=== PATIENT | female | born 1940 | race Caucasian/White ===

== ENCOUNTER → 2019-10-11 | Outpatient (CLI) | payer MEDICARE ==
[2019-10-09 10:07] LABS: Basophils # (A) 0.1 k/uL (0-0.2); Basophils % (A) 1 %; Eosinophils # (A) 0.8 k/uL (0-0.7); Eosinophils % (A) 15 %; HCT 37.6 % (34.0-46.0); HGB 11.5 gm/dL (11.4-16.0); Lymphocytes # (A) 1.3 k/uL (1.0-4.8); Lymphocytes % (A) 24 %; MCH 29.4 pg (25.0-35.0); MCHC 30.6 g/dL (31.0-37.0); MCV 96.1 fL (80.0-100.0); Monocytes # (A) 0.3 k/uL (0-1.0); Monocytes % (A) 5 %; Neutrophils # (A) 2.9 k/uL (1.3-7.7); Neutrophils % (A) 52 %; Platelet Count 304 k/uL (150-450); RBC 3.91 m/uL (3.80-5.40); RDW 13.8 % (11.5-15.5); WBC 5.5 k/uL (3.8-10.6)
[2019-10-09 10:17] LABS: INR 0.9 (<1.2); Partial Thromboplastin Time 23.6 sec (22.0-30.0); Prothrombin Time 9.5 sec (9.0-12.0)
[2019-10-09 10:36] LABS: Appearance,Urine Cloudy (Clear); Bacteria,Urine Moderate /hpf; Bilirubin,Urine Negative (Negative); Blood,Urine Trace (Negative); Color,Urine Yellow; Glucose,Urine (UA) Negative (Negative); Ketones,Urine Negative (Negative); Leukocyte Esterase,Urine Large (Negative); Mucus,Urine Rare /hpf; Nitrite,Urine Positive (Negative); PH, Urine 5.5 (5.0-8.0); Protein,Urine Negative (Negative); RBC,Urine 7 /hpf (0-5); Specific Gravity,Urine 1.013 (1.001-1.035); Squamous Epithelial Cell,Urine 5 /hpf (0-4); Urobilinogen,Urine <2.0 mg/dL (<2.0); WBC,Urine 157 /hpf (0-5)
[2019-10-09 16:58] LABS: African American GFR (CKD) 71.5 (60.0-200.0); Albumin 4.4 g/dL (3.80-4.90); Albumin/Globulin Ratio 2.1 (1.60-3.17); BUN/Creat Ratio 24.44 Ratio (12.00-20.00); Calcium 9.5 mg/dL (8.7-10.3); Globulin 2.1 g/dL (1.6-3.3); Non-African American GFR(CKD) 61.7 (60.0-200.0); Total Bilirubin 0.4 mg/dL (0.2-1.2); Total Protein 6.5 g/dL (6.2-8.2)
== END | disposition home or self-care (01) ==
LOC: LABWHC1 10-09 08:13
PROVIDERS: ATTEND Orthopaedic Surgery Sports Medicine
DX: Z01.818 Encounter for other preprocedural examination (principal); Z01.812 Encounter for preprocedural laboratory examination
CPT/HCPCS: 36415; 80053; 81001; 85025; 85610; 85730; 87070; 93005

== ENCOUNTER 2019-10-13 13:14 | Observation (INO) | payer MEDICARE ==
[2019-10-11 11:49] VITALS: BMI 27.3
[~2019-10-13 13:14] MED LIST: ACETAMINOPHEN TAB 500 MG TAB PO ONE; DEXAMETHASONE SOD PHOSPHATE 10 MG/ML 1 ML VIAL IV ONE; GABAPENTIN 300 MG CAP PO ONE; LACTATED RINGERS 1,000 ML IV SCH; MELOXICAM 7.5 MG TAB PO ONE; ONDANSETRON 4 MG/2 ML VIAL IVP ONE; TRANEXAMIC ACID 1,000 MG in SODIUM CHLORIDE 0.9% 100 ML IVPB ONE; fentaNYL (PF) 50 MCG/ML 2 ML AMP IV PRN
[2019-10-13 14:03] LABS: Glucose,Whole Blood 97 mg/dL (75-99)
[2019-10-13] MEDS ORDERED: MIDAZOLAM 2 MG/2 ML VIAL IV ONE (14:13)
[2019-10-13] MEDS ORDERED: HYDROcodone/APAP 5-325MG 1 EACH TAB PO PRN (15:01)
[2019-10-13] MEDS ORDERED: NA PHOS,M-B/NA PHOS,DI-BA 133 ML ENEMA RECTAL PRN (15:01)
[2019-10-13] MEDS ORDERED: MAGNESIUM HYDROXIDE 2,400 MG/10 ML CUP PO PRN (15:01)
[2019-10-13] MEDS ORDERED: HYDROmorphone 0.5 MG/0.5 ML SYRINGE IVP PRN ×3 (15:01)
[2019-10-13] MEDS ORDERED: DIAZEPAM 5 MG TAB PO PRN (15:01)
[2019-10-13] MEDS ORDERED: ONDANSETRON 4 MG/2 ML VIAL IVP PRN (15:01)
[2019-10-13] MEDS ORDERED: TEMAZEPAM 15 MG CAP PO PRN (15:01)
[2019-10-13] MEDS ORDERED: HYDROcodone/APAP 10-325MG 1 EACH TAB PO PRN (15:01)
[2019-10-13] MEDS ORDERED: hydrOXYzine PAMOATE 25 MG CAP PO PRN (15:01)
[2019-10-13] MEDS ORDERED: NALOXONE 0.4 MG/ML 1 ML VIAL IV PRN (15:01)
[2019-10-13] MEDS ORDERED: traMADol 50 MG TAB PO PRN (15:01)
[2019-10-13] MEDS ORDERED: BISACODYL 10 MG SUPP RECTAL PRN (15:01)
[2019-10-13] MEDS ORDERED: PROPOFOL 10 MG/ML 20 ML VIAL IV ONE (15:17)
[2019-10-13] MEDS ORDERED: SODIUM CHLORIDE 0.9% 100 ML BAG ONE (15:17)
[2019-10-13] MEDS ORDERED: MIDAZOLAM 2 MG/2 ML VIAL ONE (15:17)
[2019-10-13] MEDS ORDERED: diphenhydrAMINE 50 MG/ML 1 ML VIAL ONE (15:17)
[2019-10-13] MEDS ORDERED: TRANEXAMIC ACID 1,000 MG/10 ML VIAL ONE (15:17)
[2019-10-13] MEDS: ROPIVACAINE 246.25 MG, EPINEPHrine 0.5 MG, KETOROLAC 30 MG, cloNIDine HCL/PF 80 MCG, WA... MISCELLANE ONE ×10 (15:44→16:20)
[2019-10-13] MEDS ORDERED: ROPIVACAINE 0.2%-NS ON-Q PUMP 1,090 MG, EMPTY PAIN BALL 1 EACH MISCELLANE PRN (17:00)
--- NOTE | 2019-10-13 17:00 | P.ANPRN ---
Procedure Note - Anesthesia - Nerve Block Performed Right Adductor Canal Date of Procedure: 10/13/19 Procedure Start Time: 14:13 Procedure Stop Time: 14:28 Location of Patient: PreOp Indication: Acute Post-Operative Pain, Requested by Surgeon (Dr Torres) Sedation Type: Sedate with meaningful contact maintained Preparation: Sterile Prep, Sterile Dressing Position: Supine Catheter: Indwelling Needle Types: Pajunk Needle Gauge: 21 Ultrasound used to visualize needle placement: Yes Ultrasound used to observe medication spread: Yes Injectate: 0.5% Ropivacaine (see comment for volume) (20cc) Blood Aspirated: No Pain Paresthesia on Injection Noted: No Resistance on Injection: Normal Image Stored and Saved: Yes Events: Uneventful and Well Tolerated
[2019-10-13] MEDS ORDERED: LACTATED RINGERS 1,000 ML IV ONE ×2 (17:35)
--- NOTE | 2019-10-13 17:54 | XR ---
EXAMINATION TYPE: XR knee limited RT DATE OF EXAM: 10/13/2019 COMPARISON: NONE HISTORY: Postop TECHNIQUE: 2 views FINDINGS: There is right knee prosthesis. Components are in anatomic position. There is minimal soft tissue air related to recent surgery. IMPRESSION: No complicating process seen.
[2019-10-13 17:55] LABS: Glucose,Whole Blood 155 mg/dL (75-99)
[2019-10-13 20:45] LABS: Glucose,Whole Blood 194 mg/dL (75-99)
[2019-10-13] MEDS ORDERED: SENNOSIDES-DOCUSATE SODIUM 1 EACH TAB PO SCH (21:00)
[2019-10-13] MEDS: ASPIRIN 325 MG TAB PO SCH (21:05)
[2019-10-13] MEDS: LACTATED RINGERS 1,000 ML IV SCH (22:15)
[2019-10-13 22:36] VITALS: RESP 17
--- NOTE | 2019-10-14 03:56 | OP ---
OPERATIVE REPORT DATE OF PROCEDURE: 10/13/2019. SURGEON: Mumtaz Torres MD. AERODYNAMICIST: VASILE Garza. PREOPERATIVE DIAGNOSIS: Right knee osteoarthrosis. POSTOPERATIVE DIAGNOSIS: Right knee osteoarthrosis. OPERATION: Right total knee arthroplasty. ANESTHESIA: Spinal sedation. ESTIMATED BLOOD LOSS: 100 mL. TOURNIQUET TIME: 41 minutes at 250 mmHg. COMPLICATIONS: None apparent. DRAINS: None. DISPOSITION: Postanesthesia care unit. INDICATIONS: Yamel is a very pleasant 79-year-old female with longstanding history of right knee pain. History and physical examination are consistent with advanced right knee osteoarthrosis. She has been through significant nonoperative management up to this point. Further treatment options were discussed and she has decided to go for the right total knee arthroplasty. The risks of the procedure were discussed with her in detail. These risks include, but are not limited to risk of infection, nerve damage, bleeding, pain, and a small risk of deep vein thrombosis which could lead to fatal pulmonary embolism. There is also risk of loosening of the implant which could require revision operation. Patient understands these risks. All of her questions were answered to her satisfaction. Appropriate informed consent was obtained. DESCRIPTION OF PROCEDURE: The patient identified in the preoperative holding area. Surgical sites marked by both the patient and myself. She was given 2 grams of Ancef IV for prophylactic purposes. She was then transferred to the operative suite. She was placed supine on the operative table. Spinal anesthetic was then administered and dosed per the anesthesia department without apparent complication. Examination under anesthesia was then performed. The patient was 2-3 degrees shy of full extension. She had 100 degrees of flexion. Medial collateral ligament, lateral collateral ligament and posterior cruciate ligaments were stable. Tourniquet was then placed high on the right upper thigh well-padded in preparation for surgery. The patient's right lower extremity was then prepped and draped in usual sterile fashion. Standard surgical pause undertaken to ensure that we were operating on the correct site and that appropriate preoperative antibiotics had been given. All staff in the room were in agreement and we proceeded. The outlines of the patella marked with surgical pen. A planned 12 cm vertical incision centered over the patella was marked with surgical pen. The leg was exsanguinated with an Esmarch dressing. The knee was flexed and tourniquet was inflated to 250 mmHg. The total tourniquet time for the procedure was 41 minutes. Incision was then made with a 10 blade scalpel. Dissection was carried down sharply overlying fascia. Great care was taken to minimize the skin flaps. The knee was then exposed using a standard medial parapatellar approach. A small cuff of quadriceps tendon was then left for suturing. She was in a bit of varus preoperatively. A standard medial release was then made. Superficial medial collateral ligament dissected off the bone around to the posterior aspect of the proximal tibia. The medial meniscus was then excised as well. The lateral meniscus was also released anteriorly. The leg was then externally rotated. The patella was everted. The knee was flexed. Retractors were then placed to protect the collateral ligaments. I then proceeded to remove the infrapatellar fat pad. This was excised sharply tangentially with fibers of the patellar tendon. I then proceeded to remove the peripheral osteophytes. This was done with a rongeur. I then proceeded with the distal femoral resection. She did have near full extension. A planned 9 mm resection was then done. The femoral canal was then entered at the midline of the femur approximately 10 mm anterior to the origin of the posterior cruciate ligament. The bran was then advanced down the center of the femur and placed intramedullary. Based on the preoperative radiographs, the angle between the anatomic and mechanical axis of the femur was approximately 4 to 5 degrees. The valgus angle distal femoral cutting guide was then set at 4 degrees for the right knee. The distal femoral cutting guide was then advanced over the intramedullary bran. This was seated firmly against the femur. Then as mentioned planned to take 9 mm off the distal femur. The cutting block was then secured onto the femur with pins. The jig was removed. The distal femoral cut was made through the slot of the block. The pin was then removed. The distal femoral cutting block was removed. The accuracy of the distal femoral cuts was checked with 2 flat bars. I then proceed to femoral sizing. Posterior referencing sizing guide was held firmly against the resected distal surface of the femur. The posterior condyles were resting on the posterior plane of the guide. The sizing stylus was then placed onto the anterior femur. The size was measured as a size 8. I then assessed for femoral rotation. Plan for 3 degrees external rotation. Three degrees of external rotation was placed onto the jig. These holes were then marked. I then confirmed the rotation by 3 separate methods. This was done using epicondylar axis as well as Whitesides line and posterior referencing. It was deemed that the external rotation was proper. I then went forward with placing the femoral cutting block. This was placed over the previously placed pin holes. The Shivam wing was then placed on the anterior slots to ensure that we would not notch the anterior femur with the anterior femoral cut. I then proceeded with the anterior femoral cut. This was flushed with the anterior cortex of the femur. Posterior cuts were then made followed by the anterior chamfer cut, then the posterior chamfer cut. The cutting block was then removed. Throughout the resection, the collateral ligaments were protected with retractors. I then placed a trial size 8 femur. It fit very nice medial-lateral and fit flush with the distal end of the femur. The drill holes were then made. I then proceeded with the tibial cut. I planned for cruciate retaining knee. The guide was placed and set for varus, valgus and for slope. The height was set for approximate 2 mm resection from the medial tibial plateau which was the lower side. I was happy with the alignment and amount of resection. The cutting block was then pinned to the proximal tibia. The alignment bran was removed. The proximal tibia was resected with a reciprocating saw. Again this was done with retractors protecting the collateral ligaments as well as the posterior cruciate ligament. I then proceeded to evaluate the flexion and extension gaps. A 10 mm block was then placed. The flexion and extension gaps were equal. I then proceeded with resection of posterior osteophytes. She had very minimal posterior osteophytes. This was done using a curved osteotome. This resected the posterior osteophytes and posterior capsule stripping was done off the posterior aspect of the femur at this time. The osteophytes were then removed. I then proceeded with resection of patella. The thickness of the patella was measured using the caliper. The thickness was 22 mm. The thickness of the anticipated patellar dome was taken into account. Resection was then performed and confirmed to be equal in 4 quadrants using a caliper. Approximately 14 mm of bone remained after resection. A 29 x 8 standard patellar trial was then placed. The holes were drilled. The trial was then placed. I then proceeded with sizing the tibial plate. A size F tibial plate fit very nicely. I then placed the trial femur, the tibial tray and the patellar button. A 10 mm trial tibial insert was also placed. The components fit very nicely. She had full extension and flexion. The extension and flexion gaps were equal and stable to varus and valgus stress. The patella tracked appropriately. The tibial tray rotation was then marked with a Bovie. This was externally rotated properly. I then proceeded with tibial preparation. I first drilled the femoral holes, removed femoral component. The tibial tray was then set for proper external rotation as well as mediolateral placement onto the tibia. It was then pinned into place. I then proceeded with punching the keel. I then decided to proceed with cementing of all of our components. The knee was thoroughly irrigated with sterile saline solution via pulse lavage. The lateral geniculate artery was identified and cauterized. All blood was removed from the bone of the tibia femur and patella with pulse lavage. I then proceeded with cementing. Two packs of antibiotic bone cement prepared on the back table by the surgical corsetier. I then proceeded with cementing the tibia first. The cement was impacted in the keel as well as deeply seated to the bone. A second coat of cement was then placed. The tibia was then impacted into place. Excess cement was removed with Jess's and jokers. I then proceeded with cementing of the femoral component. The femoral component was also cemented using standard technique. Excess cement was removed. A 10 mm trial insert was then placed into the knee. It was brought into full extension with a constant axial load placed until the cement had hardened. The patellar component was then cemented. This was held firmly with a compressive device until the cement had dried. When the cement had dried, the knee was taken out of extension. All excess cement was removed from around the prosthesis. I then trialed the knee with a 10 mm insert. The flexion and extension gaps were appropriate. I then trialed an 11 mm insert. Flexion and extension gaps felt better. The knee was stable with an 11 mm insert. It came into full extension. I decided to go forward with an 11 mm cross-linked cruciate- retaining tibial insert. Polyethylene was then placed on the tibial tray and locked into place. The knee was then reduced. The knee was again further irrigated with sterile saline solution with antibiotic added. The tourniquet was then deflated. Total tourniquet time for the procedure was 41 minutes at 250 mmHg. Final components were Fede Persona size 8 cruciate-retaining femoral component, size F tibial tray, an 11 mm cruciate retaining polyethylene insert and a 29 x 8 mm patella. I then proceeded with closure. Again, the knee was thoroughly irrigated. The quadriceps tendon and the medial retinaculum were reapproximated with #2 Ethibond suture. The extensor mechanism was then closed with a running #2 Quill suture. Subcutaneous tissues were closed with 2-0 Vicryl interrupted suture. The skin was closed with a running 3-0 Quill suture. Dermabond was applied to the incision. Sterile compressive dressings were applied. All sponge and needle counts were deemed correct prior to closure. The patient tolerated procedure without apparent complication. She was transferred recovery room in stable condition. MMODL / IJN: [id number] /
[2019-10-14] MEDS: LACTATED RINGERS 1,000 ML IV SCH (04:52)
--- NOTE | 2019-10-14 06:47 | P.CONS ---
History of Present Illness - Reason for Consult Consult date: 10/14/19 - History of Present Illness The patient is 79-year-old female with a a PMH of HTN, hypothyroidism, type 2 DM, and bilateral knee osteoarthritis status post left knee arthroplasty who was admitted to the hospital for an elective right knee total arthroplasty. The patient was seen as a medical consult postoperatively on the surgical unit. The patient reported excellent control of her pain, rated at a 1 out of 10 of the right knee at time of interview. She denied any additional complaints. She denied chest pain, shortness of fever, chills, cough, nausea, vomiting, abdominal pain, diarrhea, or dizziness. The patient endorsed that she was diagnosed with a UTI 3 days ago, and was prescribed Bactrim, which she is currently taking. Review of Systems Pertinent positives and negatives as discussed in HPI, a complete review of systems was performed and all other systems are negative. Past Medical History Past Medical History: Diabetes Mellitus, Hypertension, Thyroid Disorder Additional Past Medical History / Comment(s): occ leakage of stool, arthritis in knee, skin cancer, on Rx for UTI currently History of Any Multi-Drug Resistant Organisms: None Reported Past Surgical History: Adenoidectomy, Bladder Surgery, Hysterectomy, Joint Replacement, Tonsillectomy Additional Past Surgical History / Comment(s): bladder suspension, skin cancer removed from nose, left knee replacement, Past Anesthesia/Blood Transfusion Reactions: Motion Sickness Additional Past Anesthesia/Blood Transfusion Reaction / Comm: "sudden shock syndrome"-can not take medications rapidly(felt like she was going to pass out), needs IV mediations given slowly. woke up in ICU after last knee surgery and received 4 units of blood Past Psychological History: No Psychological Hx Reported Smoking Status: Former smoker Past Alcohol Use History: None Reported Additional Past Alcohol Use History / Comment(s): quit smoking around age 32, started smoking since age 15 Past Drug Use History: None Reported - Past Family History Mother Family Medical History: Cancer Additional Family Medical History / Comment(s): uterine Medications and Allergies Home Medications Medication Instructions Recorded Confirmed Type Bactrim(Dose Unknown) 1 tab PO DIRECTED 10/11/19 10/13/19 History Calcium + D3 1 tab PO DAILY 10/11/19 10/13/19 History Iron Tab 27 ng PO DAILY 10/11/19 10/13/19 History Levothyroxine Sodium 100 mcg PO 2100 10/11/1920 History Lisinopril [Zestril] 10 mg PO DAILY 10/11/19 10/13/19 History amLODIPine BESYLATE [Norvasc] 2.5 mg PO 209910/11/19 10/13/19 History metFORMIN HCL 500 mg PO BID 10/11/19 10/13/19 History Allergies Allergy/AdvReac Type Severity Reaction Status Date / Time acetaminophen [From Lortab] Allergy Nausea & Verified 10/13/19 13:57 Vomiting hydrocodone [From Lortab] Allergy Nausea & Verified 10/13/19 13:57 Vomiting Physical Exam Vitals: Vital Signs Temp Pulse Resp BP Pulse Ox 10/14/19 04:11 17 10/14/19 01:38 97.5 F L 64 18 119/67 98 10/13/19 22:34 17 10/13/19 20:07 74 18 160/67 97 10/13/19 19:52 70 18 164/73 99 10/13/19 19:38 75 18 152/70 96 10/13/19 19:25 18 10/13/19 19:22 68 18 165/64 100 10/13/19 19:07 90 138/65 10/13/19 18:53 88 18 136/65 95 10/13/19 18:37 82 18 127/66 89 L 10/13/19 18:29 97.5 F L 81 19 162/61 94 L 10/13/19 17:50 79 16 132/60 91 L 10/13/19 17:35 81 16 133/64 92 L 10/13/19 17:20 80 16 143/66 95 10/13/19 17:04 97 F L 83 16 153/70 98 10/13/19 14:39 69 14 151/74 97 10/13/19 13:54 97.3 F L 70 16 196/91 97 Intake and Output 10/13/19 10/13/19 10/14/19 14:59 22:59 06:59 Intake Total 200 950 Output Total 200 500 Balance 200 750 -500 Intake: IV 200 950 Output: Urine 100 500 Estimated Blood Loss 100 Other: Voiding Method Toilet Weight 74.5 kg 74.5 kg General: non toxic, no distress, appears at stated age, normal weight Derm: no unusual rashes/lesions no unusual ecchymoses, warm, dry Head: atraumatic, normocephalic, symmetric Eyes: EOMI, no lid lag, anicteric sclera, pupils equal round reactive to light ENT: Nose and ears atraumatic, no thrush, no pharyngeal erythema Neck: No thyromegaly, no cervical lymphadenopathy, trachea midline, supple Mouth: no lip lesion, mucus membranes moist Cardiovascular: S1S2 reg, no murmur, positive posterior tibial pulse bilateral, no edema, capillary refill less than 2 seconds Lungs: CTA bilateral, no rhonchi, no rales , no accessory muscle use Abdominal: soft, nontender to palpation, no guarding, no appreciable organomegaly, normal bowel sounds Ext: right knee Manny bandage in place,no gross muscle atrophy, muscle strength 5 out of 5 in all 4 extremities grossly except for right lower extremity due to pain, no contractures, Neuro: CN II-XI grossly intact, light touch intact all 4 extremities, finger to nose within normal limits, Psych: Alert, oriented, appropriate affect Results Labs: Abnormal Lab Results - Last 24 Hours (Table) 10/13/19 10/13/19 Range/Units 17:53 20:45 POC Glucose (mg/dL) 155 H 194 H (75-99) mg/dL Assessment and Plan Plan: Status post right total knee arthroplasty -Management including pain control as per the orthopedic surgery service Hypertension -Continue with home meds Type II DM -Lispro sliding scale with blood glucose monitoring -Check A1c Hypothymism -Continue with home med levothyroxine
[2019-10-14] MEDS ORDERED: INSULIN ASPART (NovoLOG) 100 UNIT/ML VIAL SQ SCH (07:30)
[2019-10-14 07:32] LABS: Glucose,Whole Blood 92 mg/dL (75-99)
[2019-10-14 07:50] LABS: Basophils % (A) 0 %; Eosinophils # (A) 0.2 k/uL (0-0.7); Eosinophils % (A) 1 %; HCT 32.4 % (34.0-46.0); Hypochromasia Slight; Lymphocytes # (A) 1.5 k/uL (1.0-4.8); Lymphocytes % (A) 13 %; MCH 29.5 pg (25.0-35.0); MCHC 30.2 g/dL (31.0-37.0); MCV 97.8 fL (80.0-100.0); Mean Platelet Volume 7.2; Monocytes # (A) 0.6 k/uL (0-1.0); Monocytes % (A) 5 %; Neutrophils # (A) 8.8 k/uL (1.3-7.7); Neutrophils % (A) 79 %; Platelet Count 303 k/uL (150-450); RBC 3.32 m/uL (3.80-5.40); RDW 13.9 % (11.5-15.5); WBC 11.1 k/uL (3.8-10.6)
[2019-10-14 08:08] LABS: HGB 9.8 gm/dL (11.4-16.0)
[2019-10-14] MEDS: ASPIRIN 325 MG TAB PO SCH (08:38)
[2019-10-14 08:49] VITALS: BP 134/63; PULSE 61; TEMP 97.4
[2019-10-14] MEDS ORDERED: LISINOPRIL 10 MG TAB PO SCH (09:00)
--- NOTE | 2019-10-14 09:37 | P.PN ---
Progress Note - Text Progress Note Date: 10/14/19 Patient was seen at bedside at 645 AM. Patient is postop day 1 from right total knee replacement with adductor canal catheter placed for pain . Ropivacaine 0.2% infusion running at 8 ml per hour. VAS score is 1-5/10. Patient denies side effects. Lower extremity sensation and motor function is intact. Patient has ambulated. Dressing clean dry and intact over catheter site
--- NOTE | 2019-10-14 11:18 | P.DS ---
Providers Expected date of discharge: 10/14/19 Attending physician: Mumtaz Torres Consults: 10/13/19 15:01 Consult Physician Routine Consulting Provider: Cally Kelsey Consult Reason/Comments: post op medical management Do you want consulting provider notified?: Yes Primary care physician: Christopher Roach - Discharge Diagnosis(es) (1) Osteoarthritis of right knee Patient was admitted to the OR on 10/13/2019 to undergo a right total knee arthroplasty. She had failed conservative measures as an outpatient and desired to proceed with elective surgery after given informed consent. She underwent the above procedure which she tolerated well without complication. Postoperative hospital course has remained without complication. On day of discharge she is afebrile, vital signs stable, labs within acceptable ranges, tolerating by mouth meds and diet, voiding without difficulty, positive flatus, denies abdominal pain or calf pain, pain is controlled on oral pain medication and has no new complaints. Wound is benign, neurovascular status is intact, calf is soft and nontender, abdomen soft and nontender. Review of systems is negative for numbness, tingling, fever, chills, chest pain, shortness of breath, nausea, vomiting, dizziness, headaches, slurred speech or other Current Visit: No Status: Acute Priority: Medium (2) Status post total right knee replacement Current Visit: No Status: Acute Priority: Medium Procedures: RTKA Patient Condition at Discharge: Good Plan - Discharge Summary Discharge Rx Participant: Yes New Discharge Prescriptions: New Aspirin [Adult Low Dose Aspirin EC] 81 mg PO BID #60 tablet. traMADol HCL 50 mg PO Q4HR PRN #42 tablet PRN Reason: Pain Continue Iron Tab 27 ng PO DAILY Calcium + D3 1 tab PO DAILY Levothyroxine Sodium 100 mcg PO 2100 #30 metFORMIN HCL 500 mg PO BID #60 amLODIPine BESYLATE [Norvasc] 2.5 mg PO 2100 #30 Sulfamethoxazole/Trimethoprim [Sulfamethoxazole-Tmp Ds Tablet] 1 tab PO BID #6 Lisinopril [Zestril] 10 mg PO DAILY #30 Discharge Medication List Calcium + D3 1 tab PO DAILY 10/11/19 [History] Iron Tab 27 ng PO DAILY 10/11/19 [History] Aspirin [Adult Low Dose Aspirin EC] 81 mg PO BID #60 tablet. 10/14/19 [Rx] Levothyroxine Sodium 100 mcg PO 2100 #30 10/14/19 [Rx] Lisinopril [Zestril] 10 mg PO DAILY #30 10/14/19 [Rx] Sulfamethoxazole/Trimethoprim [Sulfamethoxazole-Tmp Ds Tablet] 1 tab PO BID #6 10/14/19 [Rx] amLODIPine BESYLATE [Norvasc] 2.5 mg PO 2100 #30 10/14/19 [Rx] metFORMIN HCL 500 mg PO BID #60 10/14/19 [Rx] traMADol HCL 50 mg PO Q4HR PRN #42 tablet 10/14/19 [Rx] Follow up Appointment(s)/Referral(s): [facility], [NON-STAFF] - Christopher Roach MD [Primary Care Provider] - 10/21/19 9:20 am Mumtaz Torres MD [STAFF PHYSICIAN] - 10/25/19 10:00 am Patient Instructions/Handouts: Knee Replacement (DC) Activity/Diet/Wound Care/Special Instructions: Complete Bactrim for UTI as prescribed to you in the outpatient setting. Keep wound clean and dry Take meds as directed Follow-up with Dr. Torres in office Weight bear as tolerated May shower in 3 days if no bleeding Discharge Disposition: HOME WITH HOME HEALTH SERVICES
[2019-10-14 11:35] LABS: Glucose,Whole Blood 106 mg/dL (75-99)
[2019-10-14] MEDS ORDERED: MULTIVITAMINS, THERA 1 EACH TAB PO SCH (12:00)
[2019-10-14] MEDS ORDERED: amLODIPine 2.5 MG TAB PO SCH (21:00)
[2019-10-14] MEDS ORDERED: SULFAMETHOX-TMP 800-160MG 1 EACH TAB PO SCH (21:00)
[2019-10-14] MEDS ORDERED: LEVOTHYROXINE 100 MCG TAB PO SCH (21:00)
== END 2019-10-14 13:28 | disposition home or self-care (01) ==
LOC: OR 13:14 → 4SSUR 17:36 → OR 10-14 11:05 → 4SSUR 10-14 11:05
PROVIDERS: ADMIT Orthopaedic Surgery Sports Medicine; ATTEND Orthopaedic Surgery Sports Medicine
DX: M17.11 Unilateral primary osteoarthritis, right knee (principal); I10 Essential (primary) hypertension; E03.9 Hypothyroidism, unspecified; E11.9 Type 2 diabetes mellitus without complications; N39.0 Urinary tract infection, site not specified; D50.9 Iron deficiency anemia, unspecified; E78.5 Hyperlipidemia, unspecified; Z96.652 Presence of left artificial knee joint; Z85.828 Personal history of other malignant neoplasm of skin; Z87.891 Personal history of nicotine dependence; Z79.899 Other long term (current) drug therapy; Z79.84 Long term (current) use of oral hypoglycemic drugs; Z79.890 Hormone replacement therapy; Z88.5 Allergy status to narcotic agent; Z80.9 Family history of malignant neoplasm, unspecified
CPT/HCPCS: 27447; 97110; 97161; 64448; 76942; 85025; 88300; 83036; 73560; G0378; C1776; C1713; J2250; J0171; J1200; J1100; J0690 ×2; J2405; J1885; J2795 ×2; J2704; J0735; J1170

== ENCOUNTER → 2021-04-11 | Outpatient (CLI) | payer MEDICARE ==
--- NOTE | 2021-04-23 09:40 | MM ---
Reason for exam: screening (asymptomatic). Last mammogram was performed 1 year and 1 month ago. History: Patient is postmenopausal and has history of other cancer at age 78. Family history of breast cancer in paternal grandmother. Benign excisional biopsy of the left breast, 2002. Benign excisional biopsy of the right breast, 1960. Took hormonal contraceptives for 5 years. Physical Findings: A clinical breast exam by your physician is recommended on an annual basis and results should be correlated with mammographic findings. MG Screening Mammo w CAD Bilateral CC and MLO view(s) were taken. Prior study comparison: March 16, 2020, mammogram, performed at [facility]. October 12, 2018, mammogram, performed at [facility]. October 01, 2017, mammogram, performed at [facility]. The breast tissue is heterogeneously dense. This may lower the sensitivity of mammography. There are benign appearing vascular calcifications bilaterally. There is no discrete abnormality. ASSESSMENT: Benign, BI-RAD 2 RECOMMENDATION: Routine screening mammogram of both breasts in 1 year.
== END | disposition home or self-care (01) ==
LOC: RADMAMWWP 06:57
PROVIDERS: ATTEND Family Medicine
DX: Z12.31 Encounter for screening mammogram for malignant neoplasm of breast (principal); Z78.0 Asymptomatic menopausal state; Z80.3 Family history of malignant neoplasm of breast
CPT/HCPCS: 77067

== ENCOUNTER 2021-11-28 09:23 | Emergency (ER) | payer MEDICARE ==
[2021-11-28 09:43] VITALS: TEMP 97.9
[2021-11-28] MEDS ORDERED: SODIUM CHLORIDE 0.9% 500 ML 500 ML IV STA (10:05)
[2021-11-28 10:35] LABS: Basophils # (A) 0.1 k/uL (0-0.2); Basophils % (A) 1 %; Eosinophils # (A) 0.3 k/uL (0-0.7); Eosinophils % (A) 6 %; HCT 33.2 % (34.0-46.0); HGB 10.6 gm/dL (11.4-16.0); Lymphocytes # (A) 1.5 k/uL (1.0-4.8); Lymphocytes % (A) 24 %; MCHC 31.8 g/dL (31.0-37.0); MCV 94.4 fL (80.0-100.0); Monocytes # (A) 0.3 k/uL (0-1.0); Monocytes % (A) 5 %; Neutrophils # (A) 3.8 k/uL (1.3-7.7); Neutrophils % (A) 62 %; Platelet Count 298 k/uL (150-450); RBC 3.52 m/uL (3.80-5.40); RDW 12.6 % (11.5-15.5); WBC 6.2 k/uL (3.8-10.6)
[2021-11-28 10:58] LABS: Albumin 4.2 g/dL (3.5-5.0); Calcium 9.1 mg/dL (8.4-10.2); Potassium 4.4 mmol/L (3.5-5.1); Total Bilirubin 0.2 mg/dL (0.2-1.3); Total Protein 6.8 g/dL (6.3-8.2)
--- NOTE | 2021-11-28 11:03 | ED ---
Abdominal Pain HPI - General Chief Complaint: Abdominal Pain Stated Complaint: Abdominal Pain Time Seen by Provider: 11/28/21 09:45 Source: patient, RN notes reviewed Mode of arrival: ambulatory Limitations: no limitations - History of Present Illness Initial Comments: 72-year-old female presents emergency Department chief complaint of right lower quadrant abdominal pain. Patient states she's been having progressive pain over the last 1 week. Patient states the pain somewhat unbearable. Patient said no nausea no vomiting no diarrhea no constipation. Patient did prior hysterectomy. She denies any bleeding no hematuria. Patient states certain positions do improve the pain. No history kidney stones. - Related Data Home Medications Medication Instructions Recorded Confirmed Calcium + D3 1 tab PO DAILY 10/11/19 10/13/19 Iron Tab 27 ng PO DAILY 10/11/19 10/13/19 Previous Rx's Medication Instructions Recorded Aspirin [Adult Low Dose Aspirin EC] 81 mg PO BID #60 tablet. 10/14/19 Levothyroxine Sodium 100 mcg PO 2100 #30 10/14/19 Sulfamethoxazole/Trimethoprim 1 tab PO BID #6 10/14/19 [Sulfamethoxazole-Tmp Ds Tablet] amLODIPine BESYLATE [Norvasc] 2.5 mg PO 2100 #30 10/14/19 lisinopriL [Zestril] 10 mg PO DAILY #30 10/14/19 metFORMIN HCL 500 mg PO BID #60 10/14/19 traMADol HCL 50 mg PO Q4HR PRN #42 tablet 10/14/19 Amoxic-Pot Clav 875-125Mg 1 tab PO Q12HR #14 tab 11/28/21 [Augmentin 875-125] Allergies Allergy/AdvReac Type Severity Reaction Status Date / Time acetaminophen [From Lortab] Allergy Nausea & Verified 11/28/21 09:40 Vomiting hydrocodone [From Lortab] Allergy Nausea & Verified 11/28/21 09:40 Vomiting Review of Systems ROS Statement: Those systems with pertinent positive or pertinent negative responses have been documented in the HPI. ROS Other: All systems not noted in ROS Statement are negative. Past Medical History Past Medical History: Diabetes Mellitus, Hypertension, Thyroid Disorder Additional Past Medical History / Comment(s): occ leakage of stool, arthritis in knee, skin cancer, History of Any Multi-Drug Resistant Organisms: None Reported Past Surgical History: Adenoidectomy, Bladder Surgery, Hysterectomy, Joint Replacement, Tonsillectomy Additional Past Surgical History / Comment(s): bladder suspension, skin cancer removed from nose, left knee replacement, Past Anesthesia/Blood Transfusion Reactions: Motion Sickness Additional Past Anesthesia/Blood Transfusion Reaction / Comment(s): "sudden shoc k syndrome"-can not take medications rapidly(felt like she was going to pass out), needs IV mediations given slowly. woke up in ICU after last knee surgery and received 4 units of blood Past Psychological History: No Psychological Hx Reported Smoking Status: Former smoker Past Alcohol Use History: None Reported Past Drug Use History: None Reported - Past Family History Mother Family Medical History: Cancer Additional Family Medical History / Comment(s): uterine General Exam Limitations: no limitations General appearance: alert, in no apparent distress Head exam: Present: atraumatic, normocephalic, normal inspection Neck exam: Present: normal inspection. Absent: tenderness, meningismus, lymphadenopathy Respiratory exam: Present: normal lung sounds bilaterally. Absent: respiratory distress, wheezes, rales, rhonchi, stridor Cardiovascular Exam: Present: regular rate, normal rhythm, normal heart sounds. Absent: systolic murmur, diastolic murmur, rubs, gallop, clicks GI/Abdominal exam: Present: soft, tenderness (Right lower quadrant), normal bowel sounds. Absent: distended, guarding, rebound, rigid Back exam: Absent: CVA tenderness (R), CVA tenderness (L) Neurological exam: Present: alert Skin exam: Present: warm, dry, intact, normal color. Absent: rash Course Vital Signs 11/28/21 11/28/21 09:40 11:32 Temperature 97.9 F Pulse Rate 88 75 Respiratory 18 16 Rate Blood Pressure 133/91 150/83 O2 Sat by Pulse 95 100 Oximetry Medical Decision Making - Medical Decision Making Labs unremarkable, CT shows fecal loasding there is diverticulosis type changes though CT is limited for mucosal infection from constipation. Patient will be discharged with magnesium citrate, Augmentin for concerns of possible colitis ty pe changes. Patiently follow-up with PCP return for any worsening changes symptoms. - Lab Data Result diagrams: 11/28/21 10:23 11/28/21 10:23 Lab Results 11/28/21 11/28/21 11/28/21 Range/Units 10:23 10:23 10:23 WBC 6.2 (3.8-10.6) k/uL RBC 3.52 L (3.80-5.40) m/uL Hgb 10.6 L (11.4-16.0) gm/dL Hct 33.2 L (34.0-46.0) % MCV 94.4 (80.0-100.0) fL MCH 30.0 (25.0-35.0) pg MCHC 31.8 (31.0-37.0) g/dL RDW 12.6 (11.5-15.5) % Plt Count 298 (150-450) k/uL MPV 7.0 Neutrophils % 62 % Lymphocytes % 24 % Monocytes % 5 % Eosinophils % 6 % Basophils % 1 % Neutrophils # 3.8 (1.3-7.7) k/uL Lymphocytes # 1.5 (1.0-4.8) k/uL Monocytes # 0.3 (0-1.0) k/uL Eosinophils # 0.3 (0-0.7) k/uL Basophils # 0.1 (0-0.2) k/uL Sodium 140 (137-145) mmol/L Potassium 4.4 (3.5-5.1) mmol/L Chloride 109 H (98-107) mmol/L Carbon Dioxide 23 (22-30) mmol/L Anion Gap 8 mmol/L BUN 27 H (7-17) mg/dL Creatinine 0.82 (0.52-1.04) mg/dL Est GFR (CKD-EPI)AfAm 79 (>60 ml/min/1.73 sqM) Est GFR (CKD-EPI)NonAf 68 (>60 ml/min/1.73 sqM) Glucose 89 (74-99) mg/dL Plasma Lactic Acid Hero 1.3 (0.7-2.0) mmol/L Calcium 9.1 (8.4-10.2) mg/dL Total Bilirubin 0.2 (0.2-1.3) mg/dL AST 20 (14-36) U/L ALT 12 (4-34) U/L Alkaline Phosphatase 67 (38-126) U/L Total Protein 6.8 (6.3-8.2) g/dL Albumin 4.2 (3.5-5.0) g/dL Amylase 50 (30-110) U/L Lipase 67 (23-300) U/L Disposition Clinical Impression: Abdominal pain, Constipation, Diverticulosis Disposition: HOME SELF-CARE Condition: Stable Additional Instructions: Please return to the Emergency Department if symptoms worsen or any other concerns. Prescriptions: Amoxic-Pot Clav 875-125Mg [Augmentin 875-125] 1 tab PO Q12HR #14 tab Is patient prescribed a controlled substance at d/c from ED?: No Referrals: Santos Cook MD [Primary Care Provider] - 1-2 days Time of Disposition: 12:35
[2021-11-28 11:33] VITALS: BP 150/83; PULSE 75; RESP 16
--- NOTE | 2021-11-28 12:19 | CT ---
EXAMINATION TYPE: CT abdomen pelvis w con DATE OF EXAM: 11/28/2021 COMPARISON: None HISTORY: RLQ pain CT DLP: 1013.7 mGycm Automated exposure control for dose reduction was used. CONTRAST: CT scan of the abdomen pelvis is performed with IV Contrast, patient injected with 100 mL of Isovue 3 00. FINDINGS- LUNG BASES-basilar subsegmental changes most typical of atelectasis. 2 mm nodule anterior portion of the inferior right upper lobe axial image 2. Suspect a degree of chronic interstitial lung disease.. LIVER/GB- No gross abnormality is appreciated. PANCREAS- No gross abnormality is seen. SPLEEN-splenic granuloma noted.. ADRENALS- No gross abnormality is seen. KIDNEYS/BLADDER- no hydronephrosis or nephrolithiasis. Simple appearing left renal cyst.. BOWEL-bowel gas pattern nonspecific with no obstruction. Changes of diverticulosis noted with no CT e vidence of diverticulitis. Appendix is not seen with certainty. Retained fecal debris throughout the colon noted. Limits assessment for mucosal lesions particular regard to the right colon. There is a h iatal hernia. LYMPH NODES- No greater than 1cm abdominal or pelvic lymph nodes areappreciated. OSSEOUS STRUCTURES-hypertrophic and degenerative changes of the spine. Grade 1 anterolisthesis of L5 on S1. Suspect central disc herniation L5-S1 and L4-5. OTHER- Atherosclerotic change aorta. No evidence of aneurysm.. IMPRESSION- 1. Appendix not visualized. Bowel gas pattern nonspecific with no obstruction and changes of divertic ulosis. 2. Subsegmental changes involving the lung bases most likely in the basis of atelectasis correlate cl inically. Incidental note made of a 2 mm right upper lobe pulmonary nodule too small to characterize. Could be followed in 12 months basis. Also suspect chronic interstitial lung disease. 3. Hiatal hernia. 4. Retained debris throughout the right colon limits assessment for mucosal lesion. Correlate for con stipation.
[2021-11-28] MEDS ORDERED: MAGNESIUM CITRATE 296 ML BOTTLE PO ONE (12:36)
== END 2021-11-28 13:05 | disposition home or self-care (01) ==
LOC: EC 09:23
DX: K57.30 Diverticulosis of large intestine without perforation or abscess without bleeding (principal); K59.00 Constipation, unspecified; E11.9 Type 2 diabetes mellitus without complications; I10 Essential (primary) hypertension; Z88.6 Allergy status to analgesic agent; Z88.5 Allergy status to narcotic agent
CPT/HCPCS: 36415; 80053; 82150; 83605; 83690; 85025; 74177; 99285; 96360; Q9967; 99284

== ENCOUNTER 2022-02-23 10:43 | Emergency (ER) | payer MEDICARE ==
[2022-02-23 10:48] VITALS: TEMP 97.5
[2022-02-23 12:03] LABS: Albumin 4.3 g/dL (3.5-5.0); Basophils % (A) 0 %; Calcium 9.3 mg/dL (8.4-10.2); Eosinophils # (A) 0.1 k/uL (0-0.7); Eosinophils % (A) 2 %; HCT 32.1 % (34.0-46.0); HGB 10.6 gm/dL (11.4-16.0); Lymphocytes # (A) 1.3 k/uL (1.0-4.8); Lymphocytes % (A) 23 %; MCH 31.1 pg (25.0-35.0); MCV 94.2 fL (80.0-100.0); Mean Platelet Volume 7.7; Monocytes # (A) 0.2 k/uL (0-1.0); Monocytes % (A) 5 %; Neutrophils # (A) 3.7 k/uL (1.3-7.7); Neutrophils % (A) 68 %; Platelet Count 275 k/uL (150-450); Potassium 4.3 mmol/L (3.5-5.1); RBC 3.41 m/uL (3.80-5.40); RDW 12.9 % (11.5-15.5); Total Bilirubin 0.4 mg/dL (0.2-1.3); Total Protein 6.7 g/dL (6.3-8.2); WBC 5.5 k/uL (3.8-10.6)
[2022-02-23 12:18] LABS: C Reactive Protein 0.6 mg/dL (<1.0)
--- NOTE | 2022-02-23 12:26 | ED ---
Lower Extremity Injury HPI - General Chief Complaint: Extremity Injury, Lower Stated Complaint: lt foot poss blood clot Time Seen by Provider: 02/23/22 10:59 Source: patient Mode of arrival: ambulatory Limitations: no limitations - History of Present Illness Initial Comments: Patient is a 81-year-old female presenting with chief complaint of left lower e xtremity pain. Patient states that last night she noticed a painful, swollen, warm, red bump to the left foot. Patient admits to pain with range of motion and pain with weightbearing. Patient has no history of DVTs. She is not on any blood thinners. No recent surgery. Patient is not on any hormones. No chest pain, difficulty breathing, palpitations, fever, chills, nausea, vomiting. No numbness, tingling, weakness, loss of range of motion. - Related Data Home Medications Medication Instructions Recorded Confirmed Calcium + D3 1 tab PO DAILY 10/11/19 10/13/19 Iron Tab 27 ng PO DAILY 10/11/19 10/13/19 Previous Rx's Medication Instructions Recorded Aspirin [Adult Low Dose Aspirin EC] 81 mg PO BID #60 tablet. 10/14/19 Levothyroxine Sodium 100 mcg PO 2100 #30 10/14/19 Sulfamethoxazole/Trimethoprim 1 tab PO BID #6 10/14/19 [Sulfamethoxazole-Tmp Ds Tablet] amLODIPine BESYLATE [Norvasc] 2.5 mg PO 2100 #30 10/14/19 lisinopriL [Zestril] 10 mg PO DAILY #30 10/14/19 metFORMIN HCL 500 mg PO BID #60 10/14/19 traMADol HCL 50 mg PO Q4HR PRN #42 tablet 10/14/19 Amoxic-Pot Clav 875-125Mg 1 tab PO Q12HR #14 tab 11/28/21 [Augmentin 875-125] Indomethacin [Indocin] 50 mg PO TID 3 Days #9 capsule 02/23/22 Allergies Allergy/AdvReac Type Severity Reaction Status Date / Time acetaminophen [From Lortab] Allergy Nausea & Verified 02/23/22 10:45 Vomiting hydrocodone [From Lortab] Allergy Nausea & Verified 02/23/22 10:45 Vomiting Review of Systems ROS Statement: Those systems with pertinent positive or pertinent negative responses have been documented in the HPI. ROS Other: All systems not noted in ROS Statement are negative. Past Medical History Past Medical History: Diabetes Mellitus, Hypertension, Thyroid Disorder Additional Past Medical History / Comment(s): occ leakage of stool, arthritis in knee, skin cancer, History of Any Multi-Drug Resistant Organisms: None Reported Past Surgical History: Adenoidectomy, Bladder Surgery, Hysterectomy, Joint Replacement, Tonsillectomy Additional Past Surgical History / Comment(s): bladder suspension, skin cancer removed from nose, left knee replacement, Past Anesthesia/Blood Transfusion Reactions: Motion Sickness Additional Past Anesthesia/Blood Transfusion Reaction / Comment(s): "sudden shock syndrome"-can not take medications rapidly(felt like she was going to pass out), needs IV mediations given slowly. woke up in ICU after last knee surgery and received 4 units of blood Past Psychological History: No Psychological Hx Reported Smoking Status: Former smoker Past Alcohol Use History: None Reported Past Drug Use History: None Reported - Past Family History Mother Family Medical History: Cancer Additional Family Medical History / Comment(s): uterine General Exam Limitations: no limitations General appearance: alert, in no apparent distress Head exam: Present: atraumatic, normocephalic, normal inspection Eye exam: Present: normal appearance, PERRL, EOMI. Absent: scleral icterus, conjunctival injection, periorbital swelling Neck exam: Present: normal inspection Respiratory exam: Present: normal lung sounds bilaterally. Absent: respiratory distress, wheezes, rales, rhonchi, stridor Cardiovascular Exam: Present: regular rate, normal rhythm, normal heart sounds. Absent: systolic murmur, diastolic murmur, rubs, gallop, clicks Left Ankle exam: Present: full ROM, tenderness, swelling Foot/Toe exam: Present: tenderness, swelling, erythema Neurological exam: Present: alert, oriented X3, CN II-XII intact Psychiatric exam: Present: normal affect, normal mood Skin exam: Present: warm, dry, intact, normal color. Absent: rash Course Vital Signs 02/23/22 02/23/22 10:45 14:44 Temperature 97.5 F L Pulse Rate 84 66 Respiratory 16 18 Rate Blood Pressure 160/75 128/100 O2 Sat by Pulse 98 97 Oximetry Medical Decision Making - Medical Decision Making Patient is a 81-year-old female presenting with chief complaint of left foot pain. Patient noticed some swelling to the left lower extremity today. Some warmth, tenderness on ambulation. No patti erythema. No fever or chills. On examination neurovascularly intact, some pain on palpation. No open wounds or discharge. Venous Doppler study negative for DVT. X-ray shows no acute fracture or dislocation. CBC shows WBC 5.5, hemoglobin 10.6 consistent with baseline. CRP 0.6. Uric acid 6.4. Does not appear to be infectious in nature. DVT is excluded. We will treat as gout. Indomethacin 3 times a day for 3 days sent to pharmacy. Follow-up with PCP. Report back to ER with any new or worsening symptoms. Discussed return parameters and answered all questions. Patient conveyed verbal understanding and agreed to the plan. I discussed this case in detail with my attending Dr. Salamanca - Lab Data Result diagrams: 02/23/22 11:29 02/23/22 11:29 Lab Results 02/23/22 02/23/22 02/23/22 Range/Units 11:29 11:29 11:29 WBC 5.5 (3.8-10.6) k/uL RBC 3.41 L (3.80-5.40) m/uL Hgb 10.6 L (11.4-16.0) gm/dL Hct 32.1 L (34.0-46.0) % MCV 94.2 (80.0-100.0) fL MCH 31.1 (25.0-35.0) pg MCHC 33.0 (31.0-37.0) g/dL RDW 12.9 (11.5-15.5) % Plt Count 275 (150-450) k/uL MPV 7.7 Neutrophils % 68 % Lymphocytes % 23 % Monocytes % 5 % Eosinophils % 2 % Basophils % 0 % Neutrophils # 3.7 (1.3-7.7) k/uL Lymphocytes # 1.3 (1.0-4.8) k/uL Monocytes # 0.2 (0-1.0) k/uL Eosinophils # 0.1 (0-0.7) k/uL Basophils # 0.0 (0-0.2) k/uL ESR Cancelled Sodium 141 (137-145) mmol/L Potassium 4.3 (3.5-5.1) mmol/L Chloride 104 (98-107) mmol/L Carbon Dioxide 24 (22-30) mmol/L Anion Gap 13 mmol/L BUN 22 H (7-17) mg/dL Creatinine 0.88 (0.52-1.04) mg/dL Est GFR (CKD-EPI)AfAm 73 (>60 ml/min/1.73 sqM) Est GFR (CKD-EPI)NonAf 63 (>60 ml/min/1.73 sqM) Glucose 179 H (74-99) mg/dL Uric Acid 6.4 (3.7-7.4) mg/dL Calcium 9.3 (8.4-10.2) mg/dL Total Bilirubin 0.4 (0.2-1.3) mg/dL AST 18 (14-36) U/L ALT 13 (4-34) U/L Alkaline Phosphatase 65 (38-126) U/L C-Reactive Protein 0.6 (<1.0) mg/dL Total Protein 6.7 (6.3-8.2) g/dL Albumin 4.3 (3.5-5.0) g/dL 02/23/22 Range/Units 13:13 WBC (3.8-10.6) k/uL RBC (3.80-5.40) m/uL Hgb (11.4-16.0) gm/dL Hct (34.0-46.0) % MCV (80.0-100.0) fL MCH (25.0-35.0) pg MCHC (31.0-37.0) g/dL RDW (11.5-15.5) % Plt Count (150-450) k/uL MPV Neutrophils % % Lymphocytes % % Monocytes % % Eosinophils % % Basophils % % Neutrophils # (1.3-7.7) k/uL Lymphocytes # (1.0-4.8) k/uL Monocytes # (0-1.0) k/uL Eosinophils # (0-0.7) k/uL Basophils # (0-0.2) k/uL ESR 31 H Sodium (137-145) mmol/L Potassium (3.5-5.1) mmol/L Chloride (98-107) mmol/L Carbon Dioxide (22-30) mmol/L Anion Gap mmol/L BUN (7-17) mg/dL Creatinine (0.52-1.04) mg/dL Est GFR (CKD-EPI)AfAm (>60 ml/min/1.73 sqM) Est GFR (CKD-EPI)NonAf (>60 ml/min/1.73 sqM) Glucose (74-99) mg/dL Uric Acid (3.7-7.4) mg/dL Calcium (8.4-10.2) mg/dL Total Bilirubin (0.2-1.3) mg/dL AST (14-36) U/L ALT (4-34) U/L Alkaline Phosphatase (38-126) U/L C-Reactive Protein (<1.0) mg/dL Total Protein (6.3-8.2) g/dL Albumin (3.5-5.0) g/dL Disposition Clinical Impression: Gout Disposition: HOME SELF-CARE Condition: Good Instructions (If sedation given, give patient instructions): Low Purine Diet (ED), Gout (ED) Additional Instructions: Follow-up with PCP. Report back to ER with any new or worsening symptoms. Take medication as prescribed. Prescriptions: Indomethacin [Indocin] 50 mg PO TID 3 Days #9 capsule Is patient prescribed a controlled substance at d/c from ED?: No Referrals: Santos Cook MD [Primary Care Provider] - 1-2 days Time of Disposition: 14:33
--- NOTE | 2022-02-23 12:54 | US ---
EXAMINATION TYPE: US venous doppler duplex LE LT DATE OF EXAM: 02/23/2022 11:55 AM COMPARISON: NONE CLINICAL HISTORY: red, swollen bump on foot. SIDE PERFORMED: Left TECHNIQUE: The lower extremity deep venous system is examined utilizing real time linear array sonog wilfred with graded compression, doppler sonography and color-flow sonography. VESSELS IMAGED: Common Femoral Vein Deep Femoral Vein Greater Saphenous Vein * Femoral Vein Popliteal Vein Small Saphenous Vein * Proximal Calf Veins (* superficial vessels) Left Leg: Negative for DVT Grayscale, color doppler, spectral doppler imaging performed of the deep veins of the left lower extr emity. There is normal flow, compressibility, vascular waveforms. IMPRESSION: No ultrasound evidence for acute DVT in the left lower extremity.
[2022-02-23] MEDS ORDERED: KETOROLAC 15 MG/ML 1 ML VIAL IVP STA (12:59)
--- NOTE | 2022-02-23 13:27 | XR ---
EXAMINATION TYPE: XR foot complete LT DATE OF EXAM: 02/23/2022 CLINICAL HISTORY: Redness and swelling. TECHNIQUE: Frontal, lateral, and oblique images of the left foot are obtained. COMPARISON: None FINDINGS: Osseous structures are demineralized. There is no acute fracture/dislocation evident in the left foot. Moderate narrowing first metatarsophalangeal joint. Moderate to severe narrowing cuboid a rticulation with the base of fifth metatarsal with subchondral cystic change. Flexion and the second through fifth toes is present. Small to moderate size inferior calcaneal spur. No suspicious bony dagmar truction. The overlying soft tissue appears unremarkable. IMPRESSION: As above.
[2022-02-23 14:45] VITALS: BP 128/100; PULSE 66; RESP 18
== END 2022-02-23 14:45 | disposition home or self-care (01) ==
LOC: EC 10:43
DX: M10.9 Gout, unspecified (principal); Z87.891 Personal history of nicotine dependence; Z88.8 Allergy status to other drugs, medicaments and biological substances
CPT/HCPCS: 36415; 80053; 84550; 85025; 85652; 86140

== ENCOUNTER → 2022-03-25 | Outpatient (CLI) | payer MEDICARE ==
--- NOTE | 2022-03-25 13:31 | XR ---
EXAMINATION TYPE: XR cervical spine limited DATE OF EXAM: 03/25/2022 CLINICAL HISTORY: pain TECHNIQUE: 3 views of the cervical spine are submitted. COMPARISON: None. FINDINGS: Moderate to severe degenerative disc space narrowing extending from C3-4 through C6-7. Dors al spondylosis. Anterior subluxation of C4 on C5 measuring 3 mm. No evidence for acute fracture. IMPRESSION: Advanced degenerative changes as noted
== END | disposition home or self-care (01) ==
LOC: RADXRMAIN 12:30
PROVIDERS: ATTEND Family Medicine
DX: M47.812 Spondylosis without myelopathy or radiculopathy, cervical region (principal); M54.2 Cervicalgia
CPT/HCPCS: 72040

== ENCOUNTER → 2022-04-17 | Outpatient (CLI) | payer MEDICARE ==
--- NOTE | 2022-04-17 16:17 | BD ---
EXAMINATION TYPE: Axial Bone Density DATE OF EXAM: 04/17/2022 COMPARISON: BASELINE CLINICAL HISTORY: 81 years old Female. 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 Bone mineral density as measured about the Lumbar spine is: ----- L1-L4(G/cm2): 0.902 T Score Values are as follows: ----- L1: -2.3 ----- L2: -2.2 ----- L3: -2.1 ----- L4: -2.7 ----- L1-L4: -2.3 Bone mineral density BASELINE Bone mineral density about the R hip (g/cm2): 0.799 Bone mineral density about the L hip (g/cm2): 0.742 T Score values are as follows: -----R Neck: -2.2 -----L Neck: -2.4 -----R Total: -1.7 -----L Total: -2.1 Bone mineral density BASELINE FRAX%s: The graph provided illustrates a 18% chance for a major osteoporotic fx and a 6.0% chance for the hips probability for fx in 10 years time. IMPRESSION: Osteopenia (T Score between -2.5 and -1). There is slightly increased risk of fracture and the patient may be considered for treatment. Re-Screen 2-5 years. NOTE: T-SCORE=SD OF THE YOUNG ADULT MEAN.
--- NOTE | 2022-04-18 08:47 | MM ---
Reason for Exam: Screening (asymptomatic). Last screening mammogram was performed 12 month(s) ago. Patient History: Menarche at age 15. First Full-Term at age 23. Hysterectomy at age 76. Postmenopausal. Other cancer, age 78. Patient used Hormonal Contraceptives for 5 years. 2002, Benign Excisional Biopsy on the left side. 1960, Benign Excisional Biopsy on the right side. Paternal grandmother had breast cancer. Risk Values: Yolanda 5 year model risk: 2.3%. NCI Lifetime model risk: 3.8%. Prior Study Comparison: 10/12/2018 Screening Mammogram, [facility] . 03/16/2020 Screening Mammogram, [facility] . 04/11/2021 Bilateral Screening Mammogram, [facility]. Tissue Density: There are scattered fibroglandular densities. Findings: Analyzed By CAD. There is no suspicious group of microcalcifications or new suspicious mass in either breast. Overall Assessment: Negative, BI-RAD 1 Management: Screening Mammogram of both breasts in 1 year. A clinical breast exam by your physician is recommended on an annual basis and results should be correlated with mammographic findings. [facility] will attempt to contact patient to return for supplemental views and ultrasound if indicated. Electronically signed and approved by: Silvano Barragan DO
== END | disposition home or self-care (01) ==
LOC: RADMAMWWP 07:05
PROVIDERS: ATTEND Family Medicine
DX: Z12.31 Encounter for screening mammogram for malignant neoplasm of breast (principal); M85.80 Other specified disorders of bone density and structure, unspecified site; N95.1 Menopausal and female climacteric states; Z80.3 Family history of malignant neoplasm of breast
CPT/HCPCS: 77063; 77067; 77080

== ENCOUNTER → 2024-11-11 | Outpatient (CLI) | payer MEDICARE ==
--- NOTE | 2024-11-11 08:36 | MM ---
Reason for Exam: Screening (asymptomatic). Last mammogram was performed 2 year(s) and 7 month(s) ago. Patient History: Menarche at age 15. First Full-Term at age 23. Hysterectomy at age 76. Postmenopausal. Other cancer, age 78. Patient used Hormonal Contraceptives for 5 years. 2002, Benign Excisional Biopsy on the left side. 1960, Benign Excisional Biopsy on the right side. Paternal grandmother had breast cancer. Risk Values: Yolanda 5 year model risk: 2.1%. NCI Lifetime model risk: 2.8%. Prior Study Comparison: 03/16/2020 Screening Mammogram, [facility] . 04/11/2021 Bilateral Screening Mammogram, [facility]. 04/17/2022 Bilateral MG 3D screening mammo w/cad, [facility]. Tissue Density: The breasts are heterogeneously dense, which may obscure small masses. Findings: Analyzed By CAD. There are benign-appearing vascular calcifications within the bilateral breasts redemonstrated. There is no suspicious group of microcalcifications or new suspicious mass in either breast. Overall Assessment: Negative, BI-RAD 1 Management: Screening Mammogram of both breasts in 1 year. . Patient should continue monthly self-breast exams. A clinical breast exam by your physician is recommended on an annual basis. This exam should not preclude additional follow-up of suspicious palpable abnormalities. Note on Yolanda scores and lifetime risk: 1. A Yolanda score greater than 3% is considered moderate risk. If this is the case, consider specialist referral to assess eligibility for a risk reducing agent. 2. If overall lifetime risk for the development of breast cancer is 20% or higher, the patient may qualify for future screening with alternating mammogram and breast MRI. [facility], , 11/11/2024 8:19 AM. Electronically signed and approved by: Je Morales M.D.
== END | disposition home or self-care (01) ==
LOC: RADMAMWWP 07:17
PROVIDERS: ATTEND Family Medicine
DX: Z12.31 Encounter for screening mammogram for malignant neoplasm of breast (principal); R92.333 Mammographic heterogeneous density, bilateral breasts; Z78.0 Asymptomatic menopausal state; Z92.0 Personal history of contraception; Z80.3 Family history of malignant neoplasm of breast
CPT/HCPCS: 77063; 77067